=== PATIENT | female | born 1945 | race Caucasian/White ===

== ENCOUNTER 2017-01-22 10:33 | Day surgery (SDC) | payer OTHER ==
[~2017-01-22] VITALS: Ht 160 cm; Wt 93.2 kg
[~2017-01-22 10:33] MED LIST: ASPIRIN ADULT L81 M1 PO; ATIVAN0.5 MG PO; CARDIZEM30 MG PO; DIGOXIN0.25 MG PO; FOLIC ACID1 MG PO; GLIPIZIDE XL2.5 MG PO; IRON325 MG PO; LASIX40 MG PO; MAG6464 MG PO; METOCLOPRAMIDE H5 MG PO; METOPROLOL TART25 MG PO; MIRALAX EQUIVAL17 GM PO; MULTIPLE VITAMIN PO; NORCO1 TA1 PO; OMEPRAZOLE20 M1 PO; PHENERGAN EQUIV25 MG PO; POTASSIUM CHLO10 ME2 PO; ROSADAN 0.75% TOP; TUMS500 MG PO; VITAMIN C500 M1 PO; VITAMIN D-31000 UNIT PO; WELLBUTRIN SR150 MG PO; ZOFRAN ODT4 MG PO
--- NOTE | 2017-01-22 11:28 | NUR ---
PATIENT ASSESSMENT AND MED/ALLERGY REVIEW COMPLETE. VITALS STABLE. CONSENT SIGNED BY PATIENT AND WITNESSED BY RN. IV STARTED IN R HAND WITH 1 ATTEMPT. PREOP INSTRUCTIONS DISUSSED. QUESTIONS ENCOURAGED AND ANSWERED BY RN. WILL CONTINUE TO MONITOR.
--- NOTE | 2017-01-22 13:42 | Provider's Discharge Care Plan ---
Problem, Goal, Plan Problem List 1. Colon polyps
--- NOTE | 2017-01-22 13:42 | Provider's Discharge Care Plan ---
Problem, Goal, Plan Problem List 1. Colon polyps
--- NOTE | 2017-01-22 13:49 | NUR ---
TO PACU PT AWAKE AND ALERT. VSS AND IV INFUSING. PT COMPLAINS OF PAIN IN LEFT HIP REPOSITIONED WITH GOOD RESULTS. PT TO BE TRANSFERED TO SCU.
--- NOTE | 2017-01-22 14:30 | NUR ---
PATIENT BACK FROM OR. VITALS STABLE. ABDOMEN SOFT. DENIES PAIN AND NAUSEA AT THIS TIME.
--- NOTE | 2017-01-22 15:06 | OPERATIVE REPORT ---
DATE OF SURGERY: 01/22/2017 SURGEON: Jefferson Allen MD PREOPERATIVE DIAGNOSIS: 1. History of colon polyps POSTOPERATIVE DIAGNOSIS: 1. Colon polyps PROCEDURE PERFORMED: 1. Colonoscopy with polypectomies ANESTHESIA: Total IV general. INDICATIONS: The patient is a 71-year-old woman with previous colon polyps. She has had some ongoing left-sided and suprapubic abdominal pain. SURGICAL TECHNIQUE: The patient was taken to the endoscopy suite, where total IV general was administered and the patient was placed in the left lateral decubitus position. A well-lubricated colonoscope was advanced the length of the colon. There were no diverticula noted. On withdrawal, multiple polyps were taken. The ileocecal valve itself demonstrated a rather asymmetric protrusion. A sample was taken from the more protruding part, though this appeared most likely to simply be part of the ileocecal valve, to rule out the possibility of a polyp at this location. On withdrawal, about 1 haustral valve above this site, there was a separate polyp. This was removed with a cautery snare and was about 4 mm in diameter. There was another similar polyp at about 80 cm, which appeared to be the distal right colon. On the left side, there was a polyp at 48 cm, about 3 mm in diameter, as well as a slightly smaller polyp right next to it, which was fulgurated. There was also a 3 mm polyp at 40 cm, which was removed with a cautery snare. No further polyps were noted, including a retroflexed view of the rectum. There did not appear to be any active colitis inflammation. The patient left in good condition, and no intraoperative complications were encountered.
[2017-01-22 15:48] VITALS: BP 107/58
== END 2017-01-22 15:20 | disposition home or self-care (01) ==
LOC: OR SRH 10:33 → SCU SRH 10:33 → OR SRH 11:00
PROVIDERS: Surgery
PROC: 0DBK8ZX Excision of Ascending Colon, Via Natural or Artificial Opening Endoscopic, Diagnostic (ICD-10-PCS; principal; 2017-01-22 12:45)
PROC: 0DBM8ZX Excision of Descending Colon, Via Natural or Artificial Opening Endoscopic, Diagnostic (ICD-10-PCS; principal; 2017-01-22 12:45)
PROC: 0DBC8ZX Excision of Ileocecal Valve, Via Natural or Artificial Opening Endoscopic, Diagnostic (ICD-10-PCS; principal; 2017-01-22 12:45)
DX: Z12.11 Encounter for screening for malignant neoplasm of colon (principal); D12.0 Benign neoplasm of cecum; D12.2 Benign neoplasm of ascending colon; D12.4 Benign neoplasm of descending colon; Z86.010 Personal history of colon polyps; J44.9 Chronic obstructive pulmonary disease, unspecified
CPT/HCPCS: 29229; 29240; 50004; 60001; 82900; 82944; 83526

== ENCOUNTER 2017-03-12 13:36 | Outpatient (CLI) | payer OTHER ==
--- NOTE | 2017-03-12 16:02 | DIAGNOSTIC IMAGING REPORT ---
PROCEDURE: CT SOFT TISSUE NECK WITH CONT INDICATION: LYMPHOMA TECHNIQUE: 75 ml of Isovue 300 IV contrast was administered. Axial thin-slice CT images were acquired through the neck with coronal and sagittal reformations. If needed, angled axial CT images avoiding dental hardware were acquired. COMPARISON: 09/08/2016 FINDINGS: Multiple cervical chain and bilateral supraclavicular lymph nodes. Right posterior paratracheal lymph node measures 8 mm, stable. No new adenopathy or significant increase in size. The thyroid gland is mildly enlarged and heterogeneous with a focal partially peripherally calcified left lower pole nodule measuring 13 mm. Punctate calcifications in the parotid glands, right greater than left. Mucosal surfaces are normal without tonsillar enlargement. Parapharyngeal fat planes are normally maintained. The vasculature is patent there is moderate carotid bulb coronary calcification bilaterally. Mild mucosal thickening in the left sphenoid sinus. The visible portions of the sinuses and mastoids are otherwise normally aerated. The visible base of the brain is normal. Mild cervical spine degeneration. No suspicious osseous lesion. The airway is patent. Lung apices demonstrate emphysema. IMPRESSION: 1. Stable bilateral cervical and supraclavicular adenopathy. 2. Stable, mildly enlarged, heterogeneous thyroid gland.
--- NOTE | 2017-03-12 16:25 | DIAGNOSTIC IMAGING REPORT ---
PROCEDURE: CT THORAX ABD PELVIS W/CONT INDICATION: LYMPHOMA TECHNIQUE: 73 ml of Isovue 300 injected intravenously and axial images were obtained of the entire thorax, abdomen, and pelvis with sagittal and coronal reformations. COMPARISON: 09/08/2016 FINDINGS: THORAX: Interval removal of left-sided Mediport. Mildly enlarged thyroid gland. Multiple mildly prominent superior mediastinal lymph nodes, the largest in the precarinal region measures 13 mm. No anterior or posterior masses. Normal esophagus without hiatal hernia. Diffusely enlarged heart with coarse, dense mitral annular, aortic valvular, coronary arterial calcification. Enlarged main pulmonary artery measuring about 3.7 cm. Normal caliber aorta and great vessels. Small bilateral pleural effusions, left greater than right. Diffuse emphysematous changes. Fluid in the right major fissure. Mild bibasilar atelectatic change. Minor subpleural alveolitis right lateral middle lobe. T10 hemangioma. No suspicious osseous lesions. A peripherally calcified 3.5 cm fatty mass in the right lower posterolateral chest wall subcutaneous tissues. ABDOMEN: Shoddy retroperitoneal lymph nodes in the aortic hiatus fat, periaortic retroperitoneal, portacaval region, and small bowel mesentery. Surgically absent gallbladder. Hepatosplenomegaly. Ill-defined low density area in the lower spleen measuring about 12 mm, stable. Multiple renal cysts. Normal caliber aorta with moderate to heavy calcific atherosclerosis. Heterogeneous right adrenal mass, normal left adrenal gland and pancreas. Normal stomach and upper bowel loops. Fat containing, mildly inflamed infraumbilical hernia, stable. PELVIS: Post hysterectomy. Trace free pelvic fluid. Stable right inguinal lymph node. Surgical clips in the left inguinal region. No significant intrapelvic adenopathy or new soft tissue mass. Normal pelvic bowel loops and urinary bladder. Mild pelvic floor prolapse. No suspicious osseous lesions. Stable anterior dermal soft tissue nodule. IMPRESSION: 1. Stable mild mediastinal adenopathy and shoddy abdomen pelvic lymph nodes. No evidence of worsened disease. 2. Cardiomegaly and stable small bilateral effusions, likely related to CHF. 3. Minor right lateral middle lobe pneumonitis. Correlate clinically. 4. Emphysema. 5. Hepatosplenomegaly with stable small splenic hypodensity. 6. Moderate to heavy atherosclerosis. 7. Chronic, mildly inflamed infraumbilical ventral abdominal wall hernia. All CT scans at this facility use dose modulation, iterative reconstruction, and/or weight-based dosing when appropriate to reduce radiation dose to as low as reasonably achievable.
== END 2017-03-12 23:00 ==
LOC: CT SRH 13:36
DX: C85.90 Non-Hodgkin lymphoma, unspecified, unspecified site (principal)
CPT/HCPCS: 90074; 90100; 91282; 92668; 92670; 92680; 95059